=== PATIENT | female | born 1965 | race Caucasian/White ===

== ENCOUNTER → 2018-12-17 | Day surgery (SDC) | payer BC, SELFPAY | PROVIDERS: Family Provider Family Medicine; Visit Provider Thoracic Surgery (Cardiothoracic Vascular Surgery) | DX: C22.7 Other specified carcinomas of liver (principal) | CPT/HCPCS: 36415; 47000; 77012; 84703; 85610; 88307; 88341; 88342; J2001; J2250; J3010 ×2 ==

== ENCOUNTER 2019-04-07 06:00 | Outpatient (RCR) | payer BC, SELFPAY | END 2019-05-07 00:01 | LOC: SPT 06:00 | PROVIDERS: Family Provider Family Medicine; Visit Provider Internal Medicine Medical Oncology | DX: C22.1 Intrahepatic bile duct carcinoma (principal) | CPT/HCPCS: 97110 ×4 ==